=== PATIENT | female | born 1985 | race Caucasian/White ===

== ENCOUNTER 2019-03-06 08:03 | Emergency (ER) | payer OTHER, MEDICAID ==
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
[2019-03-06] MEDS ORDERED: HYDROCODONE/ACETAMINOPHEN 5-325 MG TABLET PO ONE (09:32)
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
[2019-03-06 10:06] VITALS: BP 106/71
== END 2019-03-06 10:35 | disposition home or self-care (01) ==
LOC: ER 08:03
DX: R07.81 Pleurodynia (principal); M54.2 Cervicalgia; R10.816 Epigastric abdominal tenderness; V49.40XA Driver injured in collision with unspecified motor vehicles in traffic accident, initial encounter; Z88.0 Allergy status to penicillin; Z88.5 Allergy status to narcotic agent; Z88.8 Allergy status to other drugs, medicaments and biological substances
CPT/HCPCS: 70450; 72125; 74022; 99283

== ENCOUNTER 2020-05-12 11:05 | Day surgery (SDC) | payer MEDICAID ==
[2020-05-12] MEDS ORDERED: MORPHINE SULFATE 10 MG/ML INJ ONE (12:07)
[2020-05-12] MEDS ORDERED: PROMETHAZINE HCL INJ 25 MG/1 ML VIAL ONE (12:07)
[2020-05-12] MEDS ORDERED: DEXAMETHASONE SOD PHOS INJ 10 MG/1 ML VIAL ONE (12:08)
[2020-05-12] MEDS ORDERED: SUCCINYLCHOLINE CHLORIDE INJ 200 MG/10 ML VIAL ONE (12:08)
[2020-05-12] MEDS ORDERED: PROPOFOL INJ 200 MG/20 ML VIAL IV ONE (12:08)
[2020-05-12] MEDS ORDERED: FENTANYL CITRATE INJ/PF 100 MCG/2 ML AMPUL ONE (12:08)
[2020-05-12] MEDS ORDERED: MIDAZOLAM 2 MG/2 ML INJ ONE (12:09)
--- NOTE | 2020-05-12 13:07 | Operative Report ---
[facility] Report: Date: 12 May 2020 History: 35-year-old female with a history of recurrent tonsillitis, presents today for tonsillectomy. Informed consent was obtained from the patient. Pre-operative diagnosis: 1. Chronic Tonsillitis 2. Recurrent tonsillitis Post operative diagnosis: Same as above Procedure: Tonsillectomy Surgeon: Augie Strickland MD, FACS, [facility] Anesthesia: General via Endotrachreal intubation Procedure: After receiving informed consent, the patient was brought to the operating room and placed supine on the operating table. After successful induction and intubation by anesthesia the patient was turned 90 degrees and placed in Trendelenburg. A shoulder roll was placed along with a head drape. A McIvor mouth gag was inserted atraumatically into the oral cavity and opened up. The soft palate was palpated and found to be normal. Red rubber catheters were inserted down each nasal cavity and brought out to elevate the soft palate. Attention was then directed to the tonsils. The right tonsil was grasped with tenaculum and retracted medially. Using Bovie electrocautery the right tonsil was dissected free from its tonsillar fossa . Hemostasis was obtained using suction Bovie electrocautery. A similar procedure was performed on the left side. Both to nsils were removed. The tonsils were 3+. The oral pharynx and the oral cavity were irrigated with copious amounts of normal saline, without evidence of bleeding. An orogastric tube was inserted in to the stomach to aspirate gastric contents. The McIvor mouthgag was then released and reopened, the surgical bed was dry without evidence of bleeding. The McIvor mouth gag along with the red catheters were removed from the patient. The patient was then returned back to anesthesia who successfully extubated the patient. Estimated blood loss: Minimal Fluids: 500 mL The patient was then transported to the Post Anesthesia Care Unit in stable condition with spontaneous respiration. No complication.
[2020-05-12] MEDS ORDERED: OXYMETAZOLINE HCL 0.05% NASAL SPRAY 15 ML BOTTLE ONE (14:41)
== END 2020-05-12 14:11 | disposition home or self-care (01) ==
LOC: SC 11:05
PROVIDERS: ATTEND Otolaryngology
DX: J35.1 Hypertrophy of tonsils (principal); J34.2 Deviated nasal septum; Z01.812 Encounter for preprocedural laboratory examination; Z20.828 Contact with and (suspected) exposure to other viral communicable diseases
CPT/HCPCS: 87635; 88304 ×2; 42826; J2250; J3010; J2270; J3490; J2550; J0330; J2704; J1100; C9803

== ENCOUNTER 2020-05-18 11:35 | Emergency (ER) | payer MEDICAID ==
[2020-05-18 11:43] VITALS: BP 100/68
== END 2020-05-18 12:43 | disposition left against medical advice (07) ==
LOC: ER 11:35
DX: Z53.21 Procedure and treatment not carried out due to patient leaving prior to being seen by health care provider (principal)

== ENCOUNTER 2020-05-19 09:55 | Outpatient (CLI) | payer MEDICAID ==
[2020-05-19] MEDS ORDERED: RINGERS SOLUTION,LACTATED 1,500 ML IV PRN (10:05)
[2020-05-19 11:22] VITALS: BP 108/72
[2020-05-19] MEDS ORDERED: RINGERS SOLUTION,LACTATED 1,000 ML IV PRN (12:04)
== END 2020-05-19 14:30 | disposition home or self-care (01) ==
LOC: II 09:55 → 5TH 10:34 → II 14:30
PROVIDERS: ATTEND Otolaryngology
DX: E86.0 Dehydration (principal)
CPT/HCPCS: 96360; 96361

== ENCOUNTER 2020-05-20 09:09 | Outpatient (CLI) | payer MEDICAID ==
[~2020-05-20 09:09] MED LIST: RINGERS SOLUTION,LACTATED 2,000 ML IV PRN
[2020-05-20 09:26] VITALS: BP 96/56
== END 2020-05-20 11:30 | disposition home or self-care (01) ==
LOC: II 09:09 → 5TH 09:13 → II 11:30
PROVIDERS: ATTEND Otolaryngology
DX: E86.0 Dehydration (principal)
CPT/HCPCS: 96360